=== PATIENT | female | born 1950 | race African-American/Black ===

== ENCOUNTER 2020-03-21 00:50 | Inpatient (IN) | payer MEDICARE, MEDICAID ==
[~2020-03-21] VITALS: Ht 167.6 cm; Wt 88.5 kg
[2020-03-21 01:00] VITALS: BP 156/96
--- NOTE | 2020-03-21 01:00 | NUR ---
ED Nurse Note: Patient brought into ED by JOSÉ ONEAL 826 from facility for c/o abdominal pain that is aching in nature; nonradiating for the past two days. Patient states she had abdominal surgery to repair a hernia on 03/15/20. She has been nauseous and reports vomiting today. Patient also has splint on L foot. She states she broke her ankle/foot in multiple places and also had surgery on the foot on 03/18/20 but is unaware what surgery was performed. She is aaox4, breathing is normal and unlabored. Patient has PICC to L upper arm. Safety measures met. She is moaning due to pain.
--- NOTE | 2020-03-21 01:12 | Emergency Room Report ---
History of Present Illness General Chief Complaint: Abdominal Pain Source: Patient Present Illness HPI This 70-year-old female with history of perforated ulcer in the past. She had surgery for it. She presents with chief complaint abdominal pain. She recently had laparotomy done because of "ruptured hernia." This was done last week at [facility]. Also because of the pain, she had a syncopal episode and fell on her leg and is sustained fracture of her left tib-fib. She also had surgery on that. She was sent to a rehab center. She started having abdominal pain and vomiting today. Pain is 10 out of 10. Vomiting is nonbloody nonbilious. No fever chills but no trauma. Nothing made it better. Nothing made it worse. Allergies: Coded Allergies: PENICILLINS (Verified Allergy, Unknown, 03/21/20) COVID-19 Screening Contact w/high risk pt: No Experienced COVID-19 symptoms?: No COVID-19 Testing performed CAR SEALER: No Patient History Past Medical History: see triage record, old chart reviewed Past Surgical History: other Pertinent Family History: none Social History: Denies: smoking Now: No Immunizations: other Reviewed Nursing Documentation: PMH: Agreed; PSxH: Agreed Nursing Documentation-PMH Hx Hypertension: Yes Review of Systems Eye: Denies: eye pain, blurred vision ENT: Denies: ear pain, nose congestion, throat swelling Respiratory: Denies: cough, shortness of breath Cardiovascular: Denies: chest pain, palpitations Gastrointestinal: Reports: abdominal pain, nausea, vomiting; Denies: diarrhea Musculoskeletal: Denies: back pain, joint pain Skin: Denies: rash Neurological: Denies: headache, numbness Endocrine: Denies: increased thirst, increased urine Hematologic/Lymphatic: Denies: easy bruising All Other Systems: negative except mentioned in HPI Physical Exam Vital Signs Date Time Temp Pulse Resp B/P (MAP) Pulse Ox O2 Delivery O2 Flow Rate FiO2 03/21/20 00:54 98.6 78 17 156/96 (116) 99 Room Air Vitals with high blood pressure Sp02 EP Interpretation: reviewed, normal General Appearance: well appearing, no apparent distress, alert Head: normocephalic, atraumatic Eyes: bilateral eye PERRL, bilateral eye EOMI ENT: hearing grossly normal, normal pharynx Neck: full range of motion, supple, no meningismus Respiratory: chest non-tender, lungs clear, normal breath sounds Cardiovascular #1: regular rate, rhythm, no murmur Gastrointestinal: no mass, no organomegaly, no bruit, non-distended, tenderness - Diffuse, decreased bowel sounds Musculoskeletal: back normal, normal range of motion, other - Left leg in a short leg splint. Psychiatric: mood/affect normal Medical Decision Making Diagnostic Impression: Primary Impression: Spigelian hernia with bowel obstruction ER Course Patient with recent abdominal surgery. CT scan showed a ventral hernia with possible strangulation/incarceration with small bowel obstruction. NG tube ordered. Patient has no cough or hypoxia. I see no evidence of pneumonia. I contacted Dr. Redding for admission and Dr. Byrd for surgical consultation. Rhythm Strip Diag. Results EP Interpretation: yes Rate: 80 Rhythm: NSR, no PVC's, no ectopy CT/MRI/US Diagnostic Results CT/MRI/US Diagnostic Results : Imaging Test Ordered: CT abdomen pelvis Impression Read by radiologist. Cardiomegaly. Right lower quadrant Spigelian type ventral hernia worrisome for strangulated/incarceration with associated small by obstruction. Last Vital Signs Date Time Temp Pulse Resp B/P (MAP) Pulse Ox O2 Delivery O2 Flow Rate FiO2 03/21/20 00:54 98.6 78 17 156/96 (116) 99 Room Air Status: improved Disposition: ADMITTED INPATIENT Condition: Serious Kamari Choi MD Mar 21, 2020 01:12
[2020-03-21] MEDS ORDERED: HYDROmorphone 1mg/ml Carpuject IVP ONE (01:15)
[2020-03-21 01:23] LABS: BASOPHILS % (AUTO) 0.9 % (0.0-2.0); EOSINOPHILS % (AUTO) 0.4 % (0.0-3.0); HEMATOCRIT 32.9 % (37.0-47.0); HEMOGLOBIN 10.2 G/DL (12.0-16.0); LYMPHOCYTES % (AUTO) 8.6 % (20.0-45.0); MEAN CORPUSCULAR VOLUME 98 FL (80-99); MONOCYTES % (AUTO) 6.5 % (1.0-10.0); NEUTROPHILS % (AUTO) 83.6 % (45.0-75.0); PLATELET COUNT 326 K/UL (150-450); RED BLOOD COUNT 3.37 M/UL (4.20-5.40); RED CELL DISTRIBUTION WIDTH 17.9 % (11.6-14.8); WHITE BLOOD COUNT 8.4 K/UL (4.8-10.8)
[2020-03-21 01:35] LABS: ANION GAP 5 mmol/L (5-15); BLOOD UREA NITROGEN 11 mg/dL (7-18); CALCIUM 8.7 MG/DL (8.5-10.1); CARBON DIOXIDE 30 MMOL/L (21-32); CHLORIDE 103 MMOL/L (98-107); CREATININE 0.7 MG/DL (0.55-1.30); POTASSIUM 3.1 MMOL/L (3.5-5.1); SODIUM 138 MMOL/L (136-145)
[2020-03-21 01:39] LABS: ALANINE AMINOTRANSFERASE 31 U/L (12-78); ALBUMIN 2.6 G/DL (3.4-5.0); ALBUMIN/GLOBULIN RATIO 0.7 (1.0-2.7); ALKALINE PHOSPHATASE 41 U/L (46-116); ASPARTATE AMINO TRANSFERASE 33 U/L (15-37); BILIRUBIN,TOTAL 0.7 MG/DL (0.2-1.0)
[2020-03-21 02:08] LABS: APPEARANCE,URINE CLEAR; BILIRUBIN, URINE NEGATIVE (NEGATIVE); COLOR,URINE PALE YELLOW; GLUCOSE, URINE (UA) NEGATIVE (NEGATIVE); KETONES,URINE NEGATIVE (NEGATIVE); LEUKOCYTE ESTERASE ,URINE NEGATIVE (NEGATIVE); NITRITE,URINE NEGATIVE (NEGATIVE); PH,URINE 8 (4.5-8.0); PROTEIN,URINE NEGATIVE (NEGATIVE); UROBILINOGEN,URINE NORMAL MG/DL (0.0-1.0)
--- NOTE | 2020-03-21 02:27 | Diagnostic Imaging Report ---
EXAM: CT Abdomen and Pelvis Without Intravenous Contrast CLINICAL HISTORY: ABD PAIN TECHNIQUE: Axial computed tomography images of the abdomen and pelvis without intravenous contrast. CTDI is 10.80 mGy and DLP is 578.50 mGy-cm. One or more of the following dose reduction techniques were used: automated exposure control, adjustment of the mA and/or kV according to patient size, use of iterative reconstruction technique. COMPARISON: No previous study. FINDINGS: Lung bases: Imparting to her, pneumonia at the left lung base should be considered. Heart: There is cardiomegaly. Patchy airspace disease is noted at the lung bases differential etiologies for which includes by basilar pneumonias versus atelectasis. ABDOMEN: Liver: Diffuse fatty infiltration of the liver. The liver and the spleen are normal in contour. Gallbladder and bile ducts: See below. Pancreas: See below. Spleen: See above. Adrenals: The adrenal glands, the head, body, tail of the pancreas, and the gallbladder are unremarkable. Kidneys and ureters: No renal calculus or hydronephrosis. Stomach and bowel: Minimal free intra-abdominal air is noted best seen on axial image 40 and sagittal image 74 worrisome for ruptured viscus. Postsurgical changes about the stomach. Finding of note is a 13.8 x 5.3 x 18.5 cm right ventral spigelian type hernia containing bowel loops mesenteric fat and fluid. Minimal haziness within the mesenteric fat within his hernia is noted. Moreoverf fluid-filled distended small bowel loops are noted extending to the right lower quadrant. Findings are compatible with granulation or incarceration of the hernia with resultant small bowel obstruction. Surgical consultation is advised. Diffuse wall thickening of the rectosigmoid. Inflammatory or infectious etiology should be considered. PELVIS: Appendix: The appendix is seen on series 7 image 46 and is unremarkable. Bladder: Unremarkable. No stones. Reproductive: The uterus is unremarkable. ABDOMEN and PELVIS: Intraperitoneal space: Small quantity of ascites. No free air. Bones/joints: Moderate degenerative disc disease of the spinal column. 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 Vacuum disc at the L4-5 level. Grade 1 anterolisthesis of L4 upon L5 vertebral body. Sacrum and coccyx are unremarkable. Gentle levoscoliosis of the spinal:. No acute fracture. No dislocation. Soft tissues: 2.7 cm umbilical hernia containing mesenteric fat only. Ischiorectal fat is clean. Vasculature: Atherosclerotic disease of the abdominal aorta extending to the common iliac arteries, without aneurysmal dilatation. Lymph nodes: No pelvic or inguinal lymphadenopathy. Vacuum disc at the L4-5 level. IMPRESSION: 1. Cardiomegaly. 2. Small bilateral pleural effusions. 3. Patchy airspace disease the lung bases, most notably the left lower lobe. Pneumonia cannot be excluded. 4. Right lower quadrant spigelian type ventral hernia worrisome for strangulate and/or incarceration with associated small bowel obstruction. Minimal free intra-abdominal air is noted worrisome for ruptured viscus. Surgical consultation is advised. 5. Diffuse wall thickening of the rectosigmoid most suggestive of inflammatory or infectious etiologies. <MYCVCSECTION> Communications: 03/21/20 02:33 Call Doctor Regarding Above results, called Kamari Choi MD on 03/21 02:33 (-08:00)
[2020-03-21 03:00] VITALS: BP 160/88
[2020-03-21] MEDS ORDERED: PANTOPRAZOLE SO40 MG ORAL (03:02)
[2020-03-21] MEDS ORDERED: METRONIDAZOLE500 MG ORAL (03:02)
[2020-03-21] MEDS ORDERED: ACETAMINOPHEN325 M1 ORAL (03:02)
[2020-03-21] MEDS ORDERED: LOVENOX10 M4 SUBQ (03:02)
[2020-03-21] MEDS ORDERED: VANCOCIN250 MG ORAL (03:02)
[2020-03-21] MEDS ORDERED: MORPHINE S10 MG/5 ML ORAL (03:02)
[2020-03-21] MEDS ORDERED: Morphine Sulfate 4mg/ml Inj (IV USE ONLY) IVP PRN (03:30)
--- NOTE | 2020-03-21 03:45 | NUR ---
ED Nurse Note: NG tube inserted without complication; patient tolerated well. NG tube is set up to low intermittent suction as ordered by SHAHNAZ Choi.
--- NOTE | 2020-03-21 03:50 | NUR ---
ED Nurse Note: CRE/VRE/MRSA swabs obtained and sent to lab. Patient is from [facility].
--- NOTE | 2020-03-21 04:00 | NUR ---
ED Nurse Note: Report given to FAITH Rodriguez.
--- NOTE | 2020-03-21 04:00 | NUR ---
NURSE NOTES: Receive a report from FAITH Nicholas.
[2020-03-21 04:10] VITALS: BP 172/100
--- NOTE | 2020-03-21 04:10 | NUR ---
ED Nurse Note: SHAHNAZ notified of pt documented BP. Patient does not have any pain at this time, otherwise vital signs are stable. She is aware of hospital admission. Will transfer patient to MS unit.
--- NOTE | 2020-03-21 04:48 | Diagnostic Imaging Report ---
EXAM: XR Abdomen, 2 Views CLINICAL HISTORY: NGT TECHNIQUE: Frontal view of the abdomen/pelvis with upright view of the abdomen. COMPARISON: No relevant prior studies available. FINDINGS/IMPRESSION: Enteric feeding tube terminates in the stomach. Mildly prominent loops of small bowel measuring up to 4.5 cm each, consistent with bowel obstruction. Atelectasis at the left lung base. No free intraperitoneal air. Left upper extremity PICC line terminates in the superior vena cava.
--- NOTE | 2020-03-21 04:50 | NUR ---
ED Nurse Note: Patient BP is stable at this time. Patient transferred to [facility] unit via gurney by [facility]. She is breathing normal and unlabored at time of ED departure. Vital signs are stable as documented. She has no complaint of pain. Pt took all belongings with her. PICC line is patent. Patient awake and alert, verbally responsive and pleasant.
[2020-03-21 04:52] VITALS: BP 114/78
--- NOTE | 2020-03-21 05:00 | NUR ---
NURSE NOTES: Pt admitted from ER via [facility] with NG-tube inserted state, awake and alert. NG-tube is reconnected to wall suction low intermittent and drained with green gastric juice. Pt is feeling uncomfortable for having NG- tube. Readjust NG-tube on right nare on 65cm. Noted distended abdomen and decreased bowel sound. Change to hospital gown from regular clothing. Pt wants to keep herself straight up. 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 PICC dressing site kept dry and intact. No respiratory distress noted. No nausea sense noted but abdominal pain. Given unit orientation and fall precautions. Bed is lowest. Call light within reach. Will continue to monitor. Addendum: 03/21/20 at 0901 by Michael Catalan RN Pt had surgical wound in midline her previous surgery and site is clean and open to the air. Left leg had splint from tibia fx s/p fall. Pt can wiggle her toes and sensory intact.
--- NOTE | 2020-03-21 06:00 | NUR ---
NURSE NOTES: pt requests to remove NG-tube d/t discomfort. Explain for the reason to keep ng- tube. Also request to call her son to visit her. Will continue to monitor and will contact her son.
--- NOTE | 2020-03-21 06:10 | NUR ---
NURSE NOTES: Call Dr. Oro for pt's admission orders.
--- NOTE | 2020-03-21 06:50 | NUR ---
NURSE NOTES: Found NG-tube out and pt had BM. No nausea/ vomiting noted. Pt wants to go home. Will continue to follow up.
--- NOTE | 2020-03-21 06:55 | NUR ---
NURSE NOTES: Call pt's son about pt's admission and conditions. Request to visit her to support and to get treatment. Will continue to follow up.
--- NOTE | 2020-03-21 07:20 | NUR ---
NURSE HAND-OFF: Important Events on Shift: Admission via ER for SBO, Removal NG-tube Patient Status: discomfort d/t NG-tube Diet: [] Pending Orders: [admissions orders] Pending Results/Labs:[-] Pending MD notification:[admission orders] Latest Vital Signs: Temperature 98.6 , Pulse 95 , B/P 114 /78 , Respiratory Rate 18 , O2 SAT 100 , Room Air, O2 Flow Rate . Vital Sign Comment: [] Latest Still Fall Score: 80 Fall Risk: High Risk Safety Measures: Call light Within Reach, Bed Alarm , Side Rails Side Rails x2, Bed position Low and Locked. Fall Precautions: Door Sign Patient Fall Education Report given to FAITH Ford. Round is done. No N/V noted after NG-tube is out. Will continue to monitor.
--- NOTE | 2020-03-21 07:20 | NUR ---
NURSE NOTES: Spoke to Dr. Oro for pt's admission. MD will come and check admission status.
--- NOTE | 2020-03-21 07:27 | NUR ---
NURSE NOTES: Report received from Michael CUEVAS, rounds made. Patient sitting at bedside, slouched over, trying to make a phone call, assisted patient. LLE with jose de jesus wrap, CDI. LEEANN [facility] noted, dressing CDI. Awaiting on admission orders from Dr. Oro. Call light in reach, bed in lowest position, will continue to monitor. Addendum: 03/21/20 at 1131 by Liliana Galdamez RN Remains NPO, will provide oral care kit.
[2020-03-21 08:00] VITALS: BP 139/85
--- NOTE | 2020-03-21 08:25 | NUR ---
NURSE NOTES: Dr. Oro at bedside, said to notify Dr. Redding for admission orders, he will be attending, left detailed message for admission orders. Awaiting call back.
[2020-03-21] MEDS ORDERED: Morphine Sulfate 2mg/ml Inj(IV/IM USE ONLY) IVP PRN (09:00)
--- NOTE | 2020-03-21 10:00 | NUR ---
NURSE NOTES: Patient refusing IVF and antibiotic to be started. Continues to be NPO. Small amount of dark brown liquid emesis, refusing anti-emetic medication. Son at bedside. Will notify Dr. Redding, will continue to monitor.
--- NOTE | 2020-03-21 11:20 | NUR ---
NURSE NOTES: Patient wants to leave AMA, [facility], wants to go home, lives with spouse, son at bedside, patient has help available at home. Dr. Redding paged, left detailed message twice, awaiting call back.
[2020-03-21 12:00] VITALS: BP 135/97
--- NOTE | 2020-03-21 12:05 | NUR ---
NURSE NOTES: Spoke to Nursing Research Intern, Sonya. Okay to allow patient to go home, [facility], if patient leaves DAISY, patient can go anywhere they would like.
--- NOTE | 2020-03-21 12:30 | NUR ---
NURSE NOTES: Spoke to Dr. Byrd regarding patient current status (emesis, had BM early this AM after transfer to , refusing IVF/IV antibiotics, wants to leave AMA), Dr. Byrd spoke to patient's son, Bud at this time.
--- NOTE | 2020-03-21 12:38 | Consultation ---
History of Present Illness General Reason for Hospitalization: Abdominal Pain Present Illness HPI 70 year old female with multiple medical comorbidities who has complex abd surgi liza history. as per patients son she recently had a perforation requiring surgery at another hospital. she was recovering when she began to c/o abd pain, nausea, emesis and was taken to [facility] ED for evaluation. CT concerning with sbo, air, and hernia. surgery called to evaluate. I spoke with patient who states his mother is insistent on leaving the hospital to go home. she does not want to go back to rehab facility or stay. she wants to go home. I explained over 30 minutes that it is very important she stay in the hospital for follow up imaging, examination and may even require surgery as CT is concerning. she had a bm this AM and the ng was removed but she still has emesis. unfortunately she has decided to leave AMA and has done so prior to records being received and completion of exam and work up. Allergies: Coded Allergies: PENICILLINS (Verified Allergy, Unknown, 03/21/20) COVID-19 Screening Contact w/high risk pt: No Experienced COVID-19 symptoms?: No Medication History Scheduled Enoxaparin* (Lovenox*), 40 MG SUBQ DAILY, (Reported) Metronidazole* (Flagyl*), 500 MG ORAL THREE TIMES A DAY, (Reported) Pantoprazole* (Pantoprazole*), 40 MG ORAL DAILY, (Reported) Vancomycin HCl (Vancocin HCl), 125 MG ORAL QID, (Reported) Scheduled PRN Acetaminophen* (Acetaminophen 325MG Tablet*), 650 MG ORAL Q6H PRN for , (Reported) Morphine 10mg/5ml Oral Soln* (Morphine 10mg/5ml Oral Soln*), 10 MG ORAL for For Pain, (Reported) Patient History History Provided By: Family Member, Medical Record, PMD Healthcare decision maker Resuscitation status Advanced Directive on File Past Medical/Surgical History Past Medical/Surgical History: (1) Spigelian hernia with bowel obstruction Review of Systems Review of Symptoms General ROS: no weight loss or fever Psychological ROS: no depression or mood changes, no memory loss Ophthalmic ROS: no visual changes or eye irritation ENT ROS: no nasal congestion, hearing loss, dizziness Allergy and Immunology ROS: no allergic symptoms or urticaria Hematological and Lymphatic ROS: no swollen glands, unusual bleeding or bruising Endocrine ROS: no polyuria, polydipsia, weight changes, temperature intolerance Respiratory ROS: no cough, shortness of breath, or wheezing Cardiovascular ROS: no chest pain or dyspnea on exertion Gastrointestinal ROS: ++ abdominal pain, bright red blood in stool. Musculoskeletal ROS: no myalgias or arthralgias Neurological ROS: no TIA or stroke symptoms Dermatological ROS: no new or changing skin lesions, rashes or pruritis +n/v Physical Exam Physical Exam unable to complete as patient left AMA Last 24 Hour Vital Signs Date Time Temp Pulse Resp B/P (MAP) Pulse Ox O2 Delivery O2 Flow Rate FiO2 03/21/20 05:15 Room Air 03/21/20 04:52 98.6 95 18 114/78 100 Room Air 03/21/20 04:50 98.6 82 18 114/78 100 Room Air 03/21/20 04:44 176/90 03/21/20 04:30 172/100 03/21/20 04:10 98.6 82 18 172/100 100 Room Air 03/21/20 03:00 98.4 78 17 160/88 98 Room Air 03/21/20 01:42 98.6 03/21/20 01:00 78 17 Room Air 03/21/20 01:00 98.6 78 17 156/96 99 Room Air 03/21/20 00:54 98.6 78 17 156/96 (116) 99 Room Air Intake and Output 03/20/20 03/21/20 18:59 06:59 Intake Total 0 ml Output Total 200 ml Balance -200 ml Intake Oral 0 ml Output Gastric Drainage Total 200 ml # Voids 5 # Bowel Movements 2 Laboratory Tests Test 03/21/20 01:09 03/21/20 01:35 White Blood Count 8.4 K/UL (4.8-10.8) Red Blood Count 3.37 M/UL (4.20-5.40) L Hemoglobin 10.2 G/DL (12.0-16.0) L Hematocrit 32.9 % (37.0-47.0) L Mean Corpuscular Volume 98 FL (80-99) Mean Corpuscular Hemoglobin 30.2 PG (27.0-31.0) Mean Corpuscular Hemoglobin Concent 31.0 G/DL (32.0-36.0) L Red Cell Distribution Width 17.9 % (11.6-14.8) H Platelet Count 326 K/UL (150-450) Mean Platelet Volume 7.3 FL (6.5-10.1) Neutrophils (%) (Auto) 83.6 % (45.0-75.0) H Lymphocytes (%) (Auto) 8.6 % (20.0-45.0) L Monocytes (%) (Auto) 6.5 % (1.0-10.0) Eosinophils (%) (Auto) 0.4 % (0.0-3.0) Basophils (%) (Auto) 0.9 % (0.0-2.0) Sodium Level 138 MMOL/L (136-145) Potassium Level 3.1 MMOL/L (3.5-5.1) L Chloride Level 103 MMOL/L (98-107) Carbon Dioxide Level 30 MMOL/L (21-32) Anion Gap 5 mmol/L (5-15) Blood Urea Nitrogen 11 mg/dL (7-18) Creatinine 0.7 MG/DL (0.55-1.30) Estimat Glomerular Filtration Rate > 60 mL/min (>60) Glucose Level 119 MG/DL (74-106) H Calcium Level 8.7 MG/DL (8.5-10.1) Total Bilirubin 0.7 MG/DL (0.2-1.0) Aspartate Amino Transf (AST/SGOT) 33 U/L (15-37) Alanine Aminotransferase (ALT/SGPT) 31 U/L (12-78) Alkaline Phosphatase 41 U/L (46-116) L Total Protein 6.1 G/DL (6.4-8.2) L Albumin 2.6 G/DL (3.4-5.0) L Globulin 3.5 g/dL Albumin/Globulin Ratio 0.7 (1.0-2.7) L Lipase 183 U/L (73-393) Urine Color Pale yellow Urine Appearance Clear Urine pH 8 (4.5-8.0) Urine Specific Erhard 1.010 (1.005-1.035) Urine Protein Negative (NEGATIVE) Urine Glucose (UA) Negative (NEGATIVE) Urine Ketones Negative (NEGATIVE) Urine Blood 1+ (NEGATIVE) H Urine Nitrite Negative (NEGATIVE) Urine Bilirubin Negative (NEGATIVE) Urine Urobilinogen Normal MG/DL (0.0-1.0) Urine Leukocyte Esterase Negative (NEGATIVE) Urine RBC 0-2 /HPF (0 - 2) Urine WBC 0-2 /HPF (0 - 2) Urine Squamous Epithelial Cells Occasional /LPF Urine Bacteria Occasional /HPF (NONE) Urine Yeast Few /HPF (NONE) H Microbiology Date/Time Source Procedure Growth Status 03/21/20 04:00 Rectal Mucosa Received Height (Feet): 5 Height (Inches): 6.00 Weight (Pounds): 195 Medications Current Medications Medications (Trade) Dose Ordered Sig/Bogdan Route PRN Reason Start Time Stop Time Status Last Admin Dose Admin Levofloxacin 150 ml @ 100 mls/hr Q24H IVPB 03/21/20 10:00 03/28/20 09:59 Morphine Sulfate (Morphine Sulfate) 1 mg EVERY 6 HOURS PRN IVP For Pain 03/21/20 09:00 03/28/20 08:59 Ondansetron HCl (Zofran) 4 mg Q6H PRN IVP Nausea & Vomiting 03/21/20 09:00 04/20/20 08:59 Sodium Chloride 1,000 ml @ 75 mls/hr [id number] IV 03/21/20 09:00 04/20/20 08:59 Assessment/Plan Problem List: (1) Spigelian hernia with bowel obstruction Assessment & Plan: 70 year old female with multiple medical comorbidities who has complex abd surgical history. as per patients son she recently had a perforation requiring surgery at another hospital. she was recovering when she began to c/o abd pain, nausea, emesis and was taken to [facility] ED for evaluation. CT concerning with sbo, air, and hernia. surgery called to evaluate. I spoke with patient who states his mother is insistent on leaving the hospital to go home. she does not want to go back to rehab facility or stay. she wants to go home. I explained over 30 minutes that it is very important she stay in the hospital for follow up imaging, examination and may even require surgery as CT is concerning. she had a bm this AM and the ng was removed but she still has emesis. unfortunately she has decided to leave AMA and has done so prior to records being received and completion of exam and work up. recent lap for perforation per report only 6 days ago. likely etiology of free air but also could have leak sbo from hernia had BM this AM after admission recommend stay for monitoring, serial exam and imaging may need surgery patient left AMA despite all efforts to recommend remaining for care plan ABDOMEN: Liver: Diffuse fatty infiltration of the liver. The liver and the spleen are normal in contour. Gallbladder and bile ducts: See below. Pancreas: See below. Spleen: See above. Adrenals: The adrenal glands, the head, body, tail of the pancreas, and the gallbladder are unremarkable. Kidneys and ureters: No renal calculus or hydronephrosis. Stomach and bowel: Minimal free intra-abdominal air is noted best seen on axial image 40 and sagittal image 74 worrisome for ruptured viscus. Postsurgical changes about the stomach. Finding of note is a 13.8 x 5.3 x 18.5 cm right ventral spigelian type hernia containing bowel loops mesenteric fat and fluid. Minimal haziness within the mesenteric fat within his hernia is noted. Moreoverf fluid-filled distended small bowel loops are noted extending to the right lower quadrant. Findings are compatible with granulation or incarceration of the hernia with resultant small bowel obstruction. Surgical consultation is advised. Diffuse wall thickening of the rectosigmoid. Inflammatory or infectious etiology should be considered. PELVIS: Appendix: The appendix is seen on series 7 image 46 and is unremarkable. Bladder: Unremarkable. No stones. Reproductive: The uterus is unremarkable. ABDOMEN and PELVIS: Intraperitoneal space: Small quantity of ascites. No free air. Bones/joints: Moderate degenerative disc disease of the spinal column. 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 Vacuum disc at the L4-5 level. Grade 1 anterolisthesis of L4 upon L5 vertebral body. Sacrum and coccyx are unremarkable. Gentle levoscoliosis of the spinal:. No acute fracture. No dislocation. Soft tissues: 2.7 cm umbilical hernia containing mesenteric fat only. Ischiorectal fat is clean. Vasculature: Atherosclerotic disease of the abdominal aorta extending to the common iliac arteries, without aneurysmal dilatation. Lymph nodes: No pelvic or inguinal lymphadenopathy. Vacuum disc at the L4-5 level. IMPRESSION: 1. Cardiomegaly. 2. Small bilateral pleural effusions. 3. Patchy airspace disease the lung bases, most notably the left lower lobe. Pneumonia cannot be excluded. 4. Right lower quadrant spigelian type ventral hernia worrisome for strangulate and/or incarceration with associated small bowel obstruction. Minimal free intra-abdominal air is noted worrisome for ruptured viscus. Surgical consultation is advised. 5. Diffuse wall thickening of the rectosigmoid most suggestive of inflammatory or infectious etiologies. ICD Codes: K43.6 - Other and unspecified ventral hernia with obstruction, without gangrene SNOMED: [id number] Dennis Byrd Mar 21, 2020 12:38
--- NOTE | 2020-03-21 13:00 | NUR ---
NURSE NOTES: Patient remains afebrile, VSS. Able to pass gas. Abdomen soft, distended. Patient wants LEEANN triple lumen PICC removed prior to leaving AMA, Dr. Redding notified, orders to discontinue. LEEANN central line discontinued using clean technique, no active bleeding, no redness/drainage/swelling/bruising, pressure dressing applied (4x4 gauze with multiple paper tape to secure). Provided son with Dr. Redding office number and address information for patient to follow up on Sunday at 11 am, discussed with son and patient, verbalized understanding. All belongings given to patient and son, provided basin for emesis. AMA form reviewed with patient and signed. Patient sent down to lobby via in stable condition. AMA at 1300.
--- NOTE | 2020-03-21 17:14 | History and Physical Report ---
DATE OF ADMISSION: 03/21/2020 HISTORY OF PRESENT ILLNESS: This is a 70-year-old female who came to the emergency room for having recurrent nausea, vomiting, abdominal pain since last night. The patient was found to have small bowel obstruction. The patient currently this morning has been refusing, was placed on NG tube in the ER. She refused and pulled out NG tube. Currently she want to go home. She also had hernia repair about a week ago. Also has a broken foot on the left side, had surgery, and is in splint. She denies any fever or chills. Alert and oriented x3. Son is standing at the bedside. PAST MEDICAL HISTORY: Hernia repair and surgery on the left foot. MEDICATIONS: See the list. ALLERGIES: NKA. FAMILY HISTORY: Noncontributory. SOCIAL HISTORY: Lives with son. REVIEW OF SYSTEMS: Generalized weakness, feeling better. Abdominal pain is improving. PHYSICAL EXAMINATION: VITAL SIGNS: Blood pressure 130/90, pulse 74, respirations 18, no fever. SKIN: Good skin turgor. HEENT: NAD. CHEST: Bilaterally clear. CARDIOVASCULAR: Regular rhythm. ABDOMEN: Soft. Positive bowel sounds. Nontender. EXTREMITIES: Left foot, left ankle tenderness, and is in splint. GENITOURINARY: Deferred. ASSESSMENT: 1. Small bowel obstruction is improving. 2. Status post hernia repair. 3. Fracture of leg. 4. Hypertension. PLAN: We will currently continue current treatment. Start clear liquid diet. Discussed with the son. The patient does want to go home. Asking wheelchair. Recommended GI consult and waiting for discharge plan. We will give liquid diet and waiting for more bowel movement. Abdoul Redding M.D. DR: Chiara JOB#: [id number] CC:
--- NOTE | 2020-03-22 08:10 | Discharge Summary ---
Discharge Summary Discharge Summary _ DATE OF ADMISSION: 03/21/2020 DATE OF DISCHARGE: 03/21/2020 Patient left AGAINST MEDICAL ADVICE REASON FOR ADMISSION: 70 years old female with a recent history of ruptured hernia with laparotomy at the [facility]., hypertension, presented with a complaint of abdominal pain. Patient also had prior syncopal episode , fell on her leg and sustained fracture of left tibia-fibula, requiring surgery. Patient subsequently was sent to rehabilitation center. This time [atient reported abdominal pain and nonbloody nonbilious vomiting; pain 10 out of 10. No fever no chills. Upon evaluation vital signs were stable. CT of the abdomen and pelvis revealed right lower quadrant spigelian type ventral hernia, worrisome for strangulation and/ or incarceration with associated small bowel obstruction. Minimal free intra-abdominal air noted, worrisome for ruptured viscus. NGT was placed. KUB revealed mildly prominent loops of small bowels, consistent with bowel obstruction. No free peritoneal air. Laboratory work-up revealed no leukocytosis, hemoglobin 10.2 , hematocrit 32.9. Potassium 3.1. Stable other electrolytes. Glucose 119. Stable renal parameters and LFT. Urinalysis essentially negative . EKG revealed sinus rhythm , no acute ischemic changes. In emergency department patient received NG tube , analgesic , antiemetic; potassium was replaced . Patient subsequently was admitted for further management. CONSULTANTS: surgery Dr. Byrd [facility] COURSE: Patient admitted to medical surgical floor Patient was kept n.p.o. and provided with IV fluids. Bowel rest provided with NG tube to suction. Pain management was addressed. Symptomatic treatment provided. Antiemetic were on board as needed Surgeon seen and evaluated patient. Patient had bowel movement in the morning NG tube was discontinued. Patient started on clear liquid diet. Patient still had emesis Patient apparently wanted to go home. Surgeon in detail explained that it was important to stay in the hospital and do follow-up imaging to make sure that small bowel obstruction resolved. Patient was made aware that she may require surgery. Patient decided to leave AGAINST MEDICAL ADVICE despite all the recommendation to remain for care. The risks and consequences of signing AGAINST MEDICAL ADVICE were discussed with patient in detail. Patient verbalized understanding, nevertheless signed AMA form and left. FINAL DIAGNOSES: Spigelian hernia with bowel obstruction History of recent perforation , status post repair Hypertension history of left tibia-fibula fracture, status post surgery I have been assigned to dictate discharge summary for this account. I was not involved in the patient's management. Myla Camara NP Mar 22, 2020 08:10
== END 2020-03-21 13:00 | disposition left against medical advice (07) | DRG 395 ==
LOC: EDBD 00:50 → EMR 01:20 → 3E 02:48 → EDBEDREQ 03:40
DX: K43.6 Other and unspecified ventral hernia with obstruction, without gangrene (principal); I10 Essential (primary) hypertension; S82.202D Unspecified fracture of shaft of left tibia, subsequent encounter for closed fracture with routine healing; S82.402D Unspecified fracture of shaft of left fibula, subsequent encounter for closed fracture with routine healing; X58.XXXD Exposure to other specified factors, subsequent encounter; Z88.0 Allergy status to penicillin
CPT/HCPCS: 36415; 74018; 74176; 80053; 81003; 83690; 85025; 87081; 87086; 96361; 96374; 96375; 99285; J2405; J7030